=== PATIENT | male | born 1955 | race Caucasian/White ===

== ENCOUNTER → 2020-05-03 09:18 | Outpatient (CLI) | payer MEDICARE, SELFPAY ==
--- NOTE | ~2020-05-03 | CT_ITS ---
EXAMINATION:CT lung screening DATE: 05/03/2020 09:57 INDICATION: Personal history of tobacco dependence. Current smoker with 30 pack year history. TECHNIQUE: Computed tomography (CT) of the chest was performed without intravenous contrast. Automate d exposure control and iterative reconstruction technique were employed. The dose-length product (DLP ) was 362.13 mGy-cm. COMPARISON: Chest CT 10/31/2016 FINDINGS: There is mild atelectasis bilaterally. Calcified bilateral pulmonary nodules are consistent with old granulomatous disease. Again seen is a 4 mm nodule in left upper lobe. No pleural effusion. The heart size is normal. There are coronary artery calcifications. No pericardial effusion. There a re old healed left rib fractures. There is moderate thoracic spondylosis. IMPRESSION: 1. Lung-RADS category 2: Benign appearance or behavior. Continue annual screening with noncontrast lo w-dose chest CT in 12 months. Reviewed, dictated and finalized at location A. LITIES PAINTER IMPRESSION: 1. Lung-RADS category 2: Benign appearance or behavior. Continue annual screeni ng with noncontrast low-dose chest CT in 12 months.
--- NOTE | ~2020-05-03 | US_ITS ---
EXAMINATION: US abdomen complete DATE: 05/03/2020 09:49 INDICATION: Abdominal aortic aneurysm without rupture TECHNIQUE: Multiple grayscale and Doppler ultrasound images of the abdomen were obtained. COMPARISON: None available FINDINGS: Bowel gas obscures visualization of the pancreas. The visualized portions of the pancreas a re unremarkable. The liver is normal with normal echogenicity and echotexture. No surface nodularity. Normal hepatopetal flow in the main portal vein. The gallbladder is normal with no abnormal wall thi ckening, pericholecystic fluid or stones. The normal common bile duct measures 4 mm. There was no son ographic Praada sign. The visualized proximal and distal aorta is normal in diameter. The mid aorta i s obscured by bowel gas. The right kidney measures 12.8 x 6.8 x 6.5 cm. The left kidney measures 14.8 x 6.2 x 6.2 cm. The kidn eys demonstrate normal parenchymal echogenicity. There is no hydronephrosis. The spleen is normal in appearance and measures 11.4 cm. IMPRESSION: 1. Unremarkable abdominal ultrasound. 2. Visualized portions of the abdominal aorta are normal. Reviewed, dictated and finalized at location A. K DOCK MATERIAL MOVER
== END ==
PROVIDERS: PCP Internal Medicine; Visit Provider Internal Medicine
DX: I71.4 Abdominal aortic aneurysm, without rupture (principal); Z87.891 Personal history of nicotine dependence
CPT/HCPCS: 76700; G0297

== ENCOUNTER → 2020-05-17 10:11 | Outpatient (CLI) | payer MEDICARE, SELFPAY ==
--- NOTE | ~2020-05-17 | CT_ITS ---
EXAMINATION: CT abdomen w con DATE: 05/17/2020 10:42 INDICATION: Abdominal aortic aneurysm. Hypertension. TECHNIQUE: Computed tomography (CT) of the abdomen was performed with 100 cc Omnipaque 350 intravenou s contrast. Automated exposure control and iterative reconstruction technique were employed. Exam dos e: 862.02 mGy-cm total exam DLP. COMPARISON: 05/03/2020 complete abdominal ultrasound examination / CT abdomen pelvis FINDINGS: The lower lung zones are clear of infiltrate or consolidation Heart size is within normal limits. No pericardial or pleural effusion. The liver, gallbladder, bile ducts, spleen, pancreas, pancreatic duct, and adrenal glands and kidneys are unremarkable. Probable small upper pole left renal cyst. No urinary tract calculus or hydrourete ronephrosis. There is atherosclerotic calcification of the abdominal aorta and common iliac arteries but no aneury sm or dissection is noted. No intraperitoneal or retroperitoneal mass lesion or adenopathy or ascites . No bowel obstruction or intraperitoneal free air. Very small fat-containing umbilical hernia. There are degenerative changes of the thoracic and lumbar spine. No suspicious osteolytic or osteobla stic lesions are noted. IMPRESSION: No abdominal aortic aneurysm Reviewed, dictated and finalized at Location A. Reviewed, dictated and finalized at location B. LATION POWER UNIT TENDER
[2020-05-17 10:30] LABS: Estimated Glomerular Filt Rate > 60
== END ==
PROVIDERS: Visit Provider Internal Medicine
DX: I71.4 Abdominal aortic aneurysm, without rupture (principal)
CPT/HCPCS: 74160; Q9967

== ENCOUNTER → 2021-05-04 09:33 | Outpatient (CLI) | payer MEDICARE, SELFPAY ==
--- NOTE | ~2021-05-04 | XR_ITS ---
XR sacrum coccyx min 2V DATE: 05/04/2021 09:57 INDICATION: Fall. Pain. TECHNIQUE: AP, angled AP and lateral views of the sacrum and coccyx COMPARISON: None FINDINGS: No sacral or coccygeal fracture is evident. Normal alignment at the sacroiliac joints. Status post right total hip arthroplasty. IMPRESSION: Right total hip arthroplasty Reviewed, dictated and finalized at location B. CAL FABRICATOR
--- NOTE | ~2021-05-04 | XR_ITS ---
XR pelvis 1-2V DATE: 05/04/2021 09:57 INDICATION: Multiple falls TECHNIQUE: AP pelvis, 2 views COMPARISON: None FINDINGS: Status post right total hip arthroplasty. The pubic symphysis and sacroiliac joints are intact. No pelvic fracture or bone destruction is detec zahra. IMPRESSION: No pelvic fracture detected Status post right total hip arthroplasty Reviewed, dictated and finalized at location B. CUTTING MACHINE OPERATOR
== END ==
PROVIDERS: PCP Internal Medicine; Visit Provider Internal Medicine
DX: M53.3 Sacrococcygeal disorders, not elsewhere classified (principal); Z91.81 History of falling; Z96.641 Presence of right artificial hip joint
CPT/HCPCS: 72170; 72220

== ENCOUNTER → 2021-05-10 07:50 | Outpatient (CLI) | payer MEDICARE, SELFPAY ==
--- NOTE | ~2021-05-10 | US_ITS ---
EXAMINATION: US aorta DATE: 05/10/2021 08:13 INDICATION: Abdominal aortic aneurysm without rupture TECHNIQUE: Grayscale, color Doppler, and pulsed Doppler images of the aorta and common iliac arteries were obtained. COMPARISON: None. FINDINGS: Visualization of the aorta is suboptimal due to large amount of shadowing gas-filled bowel. The proxi mal aorta measures 2.7 cm. The mid aorta measures 2.2 cm. The distal aorta measures 1.8 cm. The right common iliac artery measures 10 mm. The left common iliac artery measures 8 mm. IMPRESSION: 1. Normal caliber abdominal aorta Reviewed, dictated and finalized at location A. THODONTIST
--- NOTE | ~2021-05-10 | CT_ITS ---
EXAMINATION: CT lung screening DATE: 05/10/2021 08:25 INDICATION: Z72.0 - Tobacco use TECHNIQUE: Computed tomography (CT) of the chest was performed without intravenous contrast. Addition al 3D reconstructions utilizing coronal maximum intensity projection (MIP) were performed. Automated exposure control and iterative reconstruction technique were employed. The dose-length product was 33 7.54 mGy-cm. COMPARISON: 05/03/2020 FINDINGS: 5 mm triangular intrafissural lymph node along the right minor fissure. There are few scattered small bilateral calcified pulmonary nodules consistent with old granulomatous disease. No change to slight decrease in size of a 3 mm left upper lobe nodule. No pneumonia, pulmonary edema or pleural effusion . Heart size is normal. Atherosclerotic coronary artery calcific location. No pericardial effusion. T horacic aorta is normal in caliber. No pathologically enlarged thoracic lymphadenopathy. Visualized u pper abdomen is unremarkable. Moderate thoracic spondylosis. IMPRESSION: 1. Lung-RADS category 2: Benign appearance or behavior. Continue annual screening with noncontrast lo w-dose chest CT in 12 months. Reviewed, dictated and finalized at location A. MAINTENANCE TECHNICIAN IMPRESSION: 1. Lung-RADS category 2: Benign appearance or behavior. Continue annual screeni ng with noncontrast low-dose chest CT in 12 months.
== END ==
PROVIDERS: PCP Internal Medicine; Visit Provider Internal Medicine
DX: Z12.2 Encounter for screening for malignant neoplasm of respiratory organs (principal); Z87.891 Personal history of nicotine dependence; Z13.6 Encounter for screening for cardiovascular disorders
CPT/HCPCS: 71271; 76775

== ENCOUNTER → 2022-07-03 09:47 | Outpatient (CLI) | payer MEDICARE, SELFPAY ==
--- NOTE | ~2022-07-03 | CT_ITS ---
EXAMINATION: CT lung screening DATE: 07/03/2022 10:00 INDICATION: Personal history of nicotine dependence TECHNIQUE: Computed tomography (CT) of the chest was performed without intravenous contrast. The dose -length product was 402.41 mGy-cm. Automated exposure control and iterative reconstruction technique were employed. COMPARISON: CT dated 05/10/2021 and 05/03/2020 FINDINGS: No thoracic lymphadenopathy. There is atherosclerosis of the aorta and coronary arteries. N o significant pleural or pericardial effusion. There is a calcified granuloma at the right apex. Stab le 5 mm right fissural nodule. Stable 3 mm left upper lobe nodule. No new pulmonary nodules or masses . There are a few additional calcified granulomas in the lungs. Mild emphysema. No endobronchial lesi ons. No pneumothorax. No focal airspace consolidation. Moderate thoracic spondylosis. IMPRESSION: 1. Lung-RADS category 2: Benign appearance or behavior. Continue annual screening with noncontrast lo w-dose chest CT in 12 months. Reviewed, dictated and finalized at location B. ITAL NURSE LIAISON IMPRESSION: 1. Lung-RADS category 2: Benign appearance or behavior. Continue annual screeni ng with noncontrast low-dose chest CT in 12 months.
== END ==
PROVIDERS: PCP Internal Medicine; Visit Provider Internal Medicine
DX: Z12.2 Encounter for screening for malignant neoplasm of respiratory organs (principal); Z87.891 Personal history of nicotine dependence
CPT/HCPCS: 71271

== ENCOUNTER 2022-07-19 01:05 | Day surgery (SDC) | payer MEDICARE, SELFPAY ==
[2022-07-06 12:28] VITALS: BMI 35.9
[2022-07-19 06:49] VITALS: BP 151/77; PULSE 95; RESP 20; TEMP 36.6; O2SAT 98; BMI 36.6
[2022-07-19] MEDS: LACTATED RINGERS 1,000 ML 150 ML IV CONT (06:57)
[2022-07-19 07:01] LABS: Glucose Point of Care 193 mg/dl (65-105)
--- NOTE | 2022-07-19 07:26 | WPDANESEPPF ---
Anes - Initial Pre Proc Eval Procedure: Operation Date: 07/19/22 08:00 Proposed Procedures p Colonoscopy - Hussain Mccoy MD Date/Time: 07/19/22 07:26 Surgeon: Hussain Mccoy MD Pre Op Diagnosis: hx colon polyps Patient Data Age: 67 Gender: M Height: 1.88 m Weight: 129.4 kg Last Vital Signs Temp 97.8 F 07/19/22 06:49 Pulse 95 07/19/22 06:49 Resp 20 07/19/22 06:49 BP 151/77 H 07/19/22 06:49 Pulse Ox 98 07/19/22 06:49 O2 Del Method Room Air 07/19/22 06:49 Allergies Allergy/AdvReac Type Severity Reaction Status Date / Time No Known Allergies Allergy Verified 07/19/22 06:48 Home Medications Medication Instructions Recorded Confirmed Type ezetimibe 10 mg tablet See Rx Instructions .Route 09/15/21 07/06/22 Rx .COMPLEX #90 tabs lisinopril 20 mg tablet 20 mg PO DAILY 09/15/21 07/06/22 History metformin 1,000 mg tablet See Rx Instructions .Route 09/15/21 07/06/22 Rx .COMPLEX #225 tabs metoprolol succinate 25 mg 25 mg PO DAILY 10/17/21 07/06/22 History tablet,extended release 24 hr cholecalciferol (vitamin D3) 50 50 mcg PO DAILY 07/06/22 07/06/22 History mcg (2,000 unit) capsule (Vitamin D3) dapagliflozin 10 mg tablet 10 mg PO EVERY OTHER DAY 07/06/22 07/06/22 History (Farxiga) diazepam 5 mg tablet 5 mg PO BID PRN Sleep 07/06/22 07/06/22 History omega 2-wyz-ukc-fish oil 1,000 mg 1 cap PO DAILY 07/06/22 07/06/22 History (120 mg-180 mg) capsule (Fish Oil) hydrocodone 7.5 mg-acetaminophen 1 tablet PO Q6H PRN pain #60 tabs 07/11/22 07/19/22 Rx 325 mg tablet atorvastatin 80 mg tablet See Rx Instructions .Route 07/17/22 07/19/22 Rx .COMPLEX #90 tabs Laboratory Tests 07/19/22 06:55 POC Capillary Glucose 193 mg/dl H mg/dl (65-105) Patient hx anesthesia problems: none Family hx anesthesia problems: none Results Review: All pre-operative results and documents have been reviewed as part of the pre-operative evaluation. [facility] Past Medical History Medical History (Updated 06/12/22 @ 07:35 by Sachi Briseno CMA) AAA (abdominal aortic aneurysm) Anxiety ASHD (arteriosclerotic heart disease) Benign essential hypertension Chronic low back pain DJD (degenerative joint disease) DJD (degenerative joint disease), multiple sites DM type 2 (diabetes mellitus, type 2) Elevated homocysteine Encounter for Medicare annual wellness exam Encounter for special screening examination for neoplasm of prostate FHx: prostate cancer Hearing loss Hx of colonic polyps Hyperlipidemia Maxillary pain Nicotine abuse On custodial drug therapy On termite treater helper drug therapy SHIRA on CPAP Personal history of nicotine dependence Prostate cancer screening Status post fall Torn ACL Vitamin D deficiency Surgical History Surgical History History of total hip replacement History of total right hip replacement Social History Social History Smoking packs per day: 0.5 Smoking cigarettes per day: 10.0 Years smoked: 30 Smoking pack-years: 15.00 Smoking status: Current every day smoker Tobacco type: cigarettes Second hand tobacco smoke exposure: Yes Alcohol intake: current Drinks per week: 12 Alcohol use details: BEER Substance use: never Substance use type: does not use Lack of Transportation: No Lack of Food: Never True Current Housing: I Have Housing Concerned About Future Housing: No Difficulty Paying Gas/Electric Bills: No Difficulty Paying for Meds: No Currently Unemployed: No Education: High School Diploma/GED Living arrangements: with family Occupation/Education: retired Gender identity (if verbalized by the patient): Male Spiritual care concerns: No Anes - Eval Final PreProcedure Day of Procedure 07/19/22 07:26 Patient weight: obese Heart: regular rate and rhyth
--- NOTE | 2022-07-19 07:57 | PM.HPGS ---
History of Present Illness History of Present Illness Consent: Risks, benefits, and alternatives have been discussed and questions answered. Patient agrees to proceed with procedure. Chief complaint: hx colon polyps Narrative: Getachew Cummings is a 67 year old male with colon polyps 5 years ago Review of Systems Constitutional: Constitutional: Denies headache(s) and Denies weakness Eyes: Eyes: Denies blurry vision ENT: Reports Normal hearing present, Denies headache(s) and Denies neck pain Cardiovascular: Cardiovascular: Denies chest pain and Denies dyspnea Respiratory: Respiratory: Denies dyspnea Gastrointestinal: Gastrointestinal: Reports no additional gastrointestinal complaints Genitourinary: Genitourinary: Denies dysuria Musculoskeletal: Musculoskeletal: Denies neck pain Integumentary/Breasts: Skin/Breast: Denies dry skin Neurologic: Reports Normal hearing present, Denies headache(s) and Denies weakness Psychiatric: Psychiatric: Denies anxiety Endocrine: Endocrine: Denies change in body appearance Hematologic/Lymphatic: Hematologic/Lymphatic: Denies easy bleeding Allergic/Immunologic: Allergic/Immunologic: Denies urticaria [facility] Past Medical History Medical History (Updated 06/12/22 @ 07:35 by Sachi Briseno CMA) AAA (abdominal aortic aneurysm) Anxiety ASHD (arteriosclerotic heart disease) Benign essential hypertension Chronic low back pain DJD (degenerative joint disease) DJD (degenerative joint disease), multiple sites DM type 2 (diabetes mellitus, type 2) Elevated homocysteine Encounter for Medicare annual wellness exam Encounter for special screening examination for neoplasm of prostate FHx: prostate cancer Hearing loss Hx of colonic polyps Hyperlipidemia Maxillary pain Nicotine abuse On jail drug therapy On rodent exterminator drug therapy SHIRA on CPAP Personal history of nicotine dependence Prostate cancer screening Status post fall Torn ACL Vitamin D deficiency Surgical History Surgical History History of total hip replacement History of total right hip replacement Social History Social History Smoking packs per day: 0.5 Smoking cigarettes per day: 10.0 Years smoked: 30 Smoking pack-years: 15.00 Smoking status: Current every day smoker Tobacco type: cigarettes Second hand tobacco smoke exposure: Yes Alcohol intake: current Drinks per week: 12 Alcohol use details: BEER Substance use: never Substance use type: does not use Lack of Transportation: No Lack of Food: Never True Current Housing: I Have Housing Concerned About Future Housing: No Difficulty Paying Gas/Electric Bills: No Difficulty Paying for Meds: No Currently Unemployed: No Education: High School Diploma/GED Living arrangements: with family Occupation/Education: retired Gender identity (if verbalized by the patient): Male Spiritual care concerns: No Meds Home Medications and Allergies Home Medications Medication Instructions Recorded Confirmed Type ezetimibe 10 mg tablet See Rx Instructions .Route 09/15/21 07/06/22 Rx .COMPLEX #90 tabs lisinopril 20 mg tablet 20 mg PO DAILY 09/15/21 07/06/22 History metformin 1,000 mg tablet See Rx Instructions .Route 09/15/21 07/06/22 Rx .COMPLEX #225 tabs metoprolol succinate 25 mg 25 mg PO DAILY 10/17/21 07/06/22 History tablet,extended release 24 hr cholecalciferol (vitamin D3) 50 50 mcg PO DAILY 07/06/22 07/06/22 History mcg (2,000 unit) capsule (Vitamin D3) dapagliflozin 10 mg tablet 10 mg PO EVERY OTHER DAY 07/06/22 07/06/22 History (Farxiga) diazepam 5 mg tablet 5 mg PO BID PRN Sleep 07/06/22 07/06/22 History omega 5-qkm-uxn-fish oil 1,000 mg 1 cap PO DAILY 07/06/22 07/06/22 History (120 mg-180 mg) capsule (Fish Oil) hydrocodone 7.5 mg-acetaminophen 1 tablet PO Q6H PRN pain #60 ta
[2022-07-19 08:15] VITALS: BP 92/56; PULSE 79; RESP 30; O2SAT 97
[2022-07-19 08:25] VITALS: BP 126/65; PULSE 80; RESP 24; O2SAT 100
[2022-07-19 08:35] VITALS: BP 126/70; PULSE 71; RESP 20; O2SAT 100
== END 2022-07-19 08:41 | disposition home or self-care (01) ==
PROVIDERS: PCP Internal Medicine; Visit Provider Internal Medicine Gastroenterology
PROC: 0DJD8ZZ Inspection of Lower Intestinal Tract, Via Natural or Artificial Opening Endoscopic (ICD-10-PCS; CPT 45378; principal; 2022-07-19 08:00)
DX: Z12.11 Encounter for screening for malignant neoplasm of colon (principal); D12.0 Benign neoplasm of cecum; D12.4 Benign neoplasm of descending colon; K64.8 Other hemorrhoids; I25.10 Atherosclerotic heart disease of native coronary artery without angina pectoris; I10 Essential (primary) hypertension; E11.9 Type 2 diabetes mellitus without complications; E78.5 Hyperlipidemia, unspecified; F41.9 Anxiety disorder, unspecified; G47.33 Obstructive sleep apnea (adult) (pediatric); E55.9 Vitamin D deficiency, unspecified; I71.40 Abdominal aortic aneurysm, without rupture, unspecified; Z79.891 Long term (current) use of opiate analgesic; Z79.84 Long term (current) use of oral hypoglycemic drugs; F17.210 Nicotine dependence, cigarettes, uncomplicated; E66.9 Obesity, unspecified; Z68.36 Body mass index [BMI] 36.0-36.9, adult
CPT/HCPCS: 45380; 82948; 88305; J2704; J7120

== ENCOUNTER 2023-06-25 08:19 | Outpatient (CLI) | payer MEDICARE, SELFPAY ==
[2023-06-25 09:42] LABS: Influenza A QL RT-PCR Negative (Negative); Influenza B QL RT-PCR Negative (Negative); RSV RNA, RT-PCR Negative (Negative); SARS-CoV-2 RNA PCR Positive (Negative)
== END 2023-06-25 08:20 | disposition home or self-care (01) ==
LOC: ANHLAB 08:21
PROVIDERS: PCP Internal Medicine; Visit Provider Internal Medicine
DX: R05.9 Cough, unspecified (principal); R50.9 Fever, unspecified; Z20.822 Contact with and (suspected) exposure to COVID-19
CPT/HCPCS: 87637

== ENCOUNTER → 2023-07-16 08:15 | Outpatient (CLI) | payer MEDICARE, SELFPAY ==
--- NOTE | ~2023-07-16 | CT_ITS ---
EXAMINATION: CT lung screening DATE: 07/16/2023 08:29 INDICATION: Z87.891 - Personal history of nicotine dependence TECHNIQUE: Computed tomography (CT) of the chest was performed without intravenous contrast. Addition al 3D reconstructions utilizing coronal maximum intensity projection (MIP) were performed. Automated exposure control and iterative reconstruction technique were employed. The dose-length product was 29 6.75 mGy-cm. COMPARISON: None FINDINGS: There are a few scattered small calcified nodules as well as a 3 mm noncalcified nodule in the left u pper lobe on series 4, image 38 which are likely sequela of old granulomatous disease. 6 x 2 mm thin lenticular likely intrafissural lymph node along the left major fissure. No other suspicious pulmonar y nodules, pneumonia, pulmonary edema or pleural effusion. Heart size is normal. Atherosclerotic yelena nary artery calcific location. No pericardial effusion. Thoracic aorta is normal in caliber. No patho logically enlarged thoracic lymphadenopathy. Mild to moderate thoracic spondylosis. IMPRESSION: 1. Lung-RADS category 2: Benign appearance or behavior. Continue annual screening with noncontrast lo w-dose chest CT in 12 months. Reviewed, dictated and finalized at location A. LING MACHINE OPERATOR IMPRESSION: 1. Lung-RADS category 2: Benign appearance or behavior. Continue annual screeni ng with noncontrast low-dose chest CT in 12 months.
== END ==
PROVIDERS: PCP Internal Medicine; Visit Provider Internal Medicine
DX: Z12.2 Encounter for screening for malignant neoplasm of respiratory organs (principal); Z87.891 Personal history of nicotine dependence; E11.9 Type 2 diabetes mellitus without complications; E78.5 Hyperlipidemia, unspecified; I10 Essential (primary) hypertension; I25.10 Atherosclerotic heart disease of native coronary artery without angina pectoris; Z00.01 Encounter for general adult medical examination with abnormal findings; Z79.899 Other long term (current) drug therapy
CPT/HCPCS: 71271

== ENCOUNTER 2023-12-18 09:02 | Outpatient (CLI) | payer MEDICARE, SELFPAY ==
--- NOTE | 2024-01-03 19:45 | WPDSLEEPSTUD ---
Sleep Study Date of Study: 12/18/23 Ordering Provider: Zafar Scruggs MD Interpreting Physician: Hue Griffiths MD Sleep Study Type: Split Polysomnogram Height: 1.88 m Weight: 124.738 kg Body Mass Index: 35.3 Neck Circumference (inches): 19 [place]: 13 Reason for Sleep Study Hypersomnolence Sleep History Getachew Cummings is a 68-year-old man with excessive daytime sleepiness. He has been diagnosed with sleep apnea and has a CPAP machine at home now. He never awakens from sleep feeling short of breath. He never wakes at night with heartburn, belching or coughing.??He frequently snores loudly enough that others complain. He occasionally has trouble sleeping when he has a cold. He never wakes up gasping for breath during the night. He frequently has breathing problems at night. He occasionally sweats excessively at night. He never notices his heart pounding or beating irregularly during the night. He never falls asleep during the day. He never falls asleep involuntarily, never falls asleep while driving. He never experiences loss of muscle tone with strong emotion. He never has daytime difficulty at work due to excessive sleepiness, he is retired. He occasionally feels paralyzed on waking or falling asleep. He rarely experiences vivid dreams upon waking or falling asleep. He never feels afraid of going to sleep. He never has nightmares. He occasionally recalls his dreams. He occasionally has thoughts racing through his mind. He rarely feels sad or depressed. He rarely feels anxiety. He rarely notices parts of his body jerk. He never kicks during the night. He frequently feels crawling or aching feelings in his legs. He frequently feels leg pain at night. He never has morning jaw pain, rarely grinds his teeth at night. He occasional feels bothered by pain during the day, occasionally awakened by pain during the night. He occasionally wakes up feeling stiff in the morning, and he occasionally wakes feeling sore or achy. He occasionally awakens with pain in his neck, spine, or joints. He takes sedatives. Normal bedtime is 9:00 p.m., falling asleep within 15-30 minute, waking twice at night to go to the bathroom. He is able to return to sleep within 10 minutes. Wake time is 4:00 a.m.. He typically gets between 6 and 8 hours of sleep per night. He keeps the same schedule on weekends. He does not take naps during the afternoon or evening however an occasional short nap lasting 10-15 minutes is refreshing. Habits:??Tobacco: He smokes 4-5 cigarettes per day Caffeine: 4 cups daily Alcohol: None Recreational substances: None PMFSH Past Medical History Medical History AAA (abdominal aortic aneurysm) Anxiety ASHD (arteriosclerotic heart disease) Benign essential hypertension BMI 34.0-34.9,adult BMI 37.0-37.9, adult Chronic low back pain DJD (degenerative joint disease) DJD (degenerative joint disease), multiple sites DM type 2 (diabetes mellitus, type 2) Elevated homocysteine Encounter for Medicare annual wellness exam Encounter for routine adult health examination without abnormal findings Encounter for special screening examination for neoplasm of prostate FHx: prostate cancer Hearing loss Hx of colonic polyps Hyperlipidemia Maxillary pain Nicotine abuse On terminal clerk drug therapy On penitentiary drug therapy SHIRA on CPAP Personal history of nicotine dependence Prostate cancer screening Status post fall Torn ACL Vitamin D deficiency Surgical History Surgical History History of total hip replacement History of total right hip replacement Family History Family History Father Malignant neoplasm of prostate Family history of diabetes mellitus in first degree relative Diabetes mellitus Other Family history of heart disease
[2024-01-09 11:52] VITALS: BMI 35.3
== END 2023-12-19 05:31 | disposition home or self-care (01) ==
LOC: ANHCSM 09:03
PROVIDERS: PCP Internal Medicine; Visit Provider Internal Medicine
DX: G47.33 Obstructive sleep apnea (adult) (pediatric) (principal); G47.61 Periodic limb movement disorder; I10 Essential (primary) hypertension; Z99.89 Dependence on other enabling machines and devices
CPT/HCPCS: 95811

== ENCOUNTER 2024-08-21 10:21 | Outpatient (CLI) | payer MEDICARE, SELFPAY ==
--- NOTE | ~2024-08-21 | CT_ITS ---
CT Scan of the Chest without Contrast: Clinical Indication: Lung cancer screening, nicotine dependence Technique: Contiguous sections were acquired throughout the chest without intravenous contrast. Dose reduction technique was used on this scan by utilizing automated exposure control and iterative recon struction technique. The dose-length product (DLP) was 316.53 mGy-cm. COMPARISON: 07/16/2023 Findings: There is no evidence of any significant mediastinal, hilar or axillary lymphadenopathy. Extensive cor onary artery calcifications are present. There is no evidence of pleural or pericardial effusion. The lungs are clear, aside from calcified right upper lobe granuloma. Images through the upper abdomen reveal no abnormalities. Impression: Lung RADS 1: Negative. 12 month follow-up screening CT advised. Reviewed, dictated and finalized at location . Impression: Lung RADS 1: Negative. 12 month follow-up screening CT advised.
== END 2024-08-21 10:22 | disposition home or self-care (01) ==
PROVIDERS: PCP Internal Medicine; Visit Provider Internal Medicine
DX: Z12.2 Encounter for screening for malignant neoplasm of respiratory organs (principal); Z87.891 Personal history of nicotine dependence
CPT/HCPCS: 71271